=== PATIENT | female | born 1960 | race Caucasian/White ===

== ENCOUNTER → 2016-05-20 | Outpatient (CLI) | payer MEDICARE, MEDICAID ==
[~2016-05-20] MED LIST: REGADENOSON 0.4 MG/5 ML DISP.SYRIN. IV ONE
== END | disposition home or self-care (01) ==
LOC: PCVCIMAG 08:44
PROVIDERS: ATTEND Internal Medicine Cardiovascular Disease
DX: I25.10 Atherosclerotic heart disease of native coronary artery without angina pectoris (principal); E78.00 Pure hypercholesterolemia, unspecified; J44.9 Chronic obstructive pulmonary disease, unspecified; I10 Essential (primary) hypertension; Z72.0 Tobacco use; Z86.79 Personal history of other diseases of the circulatory system
CPT/HCPCS: 78452; 80061; 93005; 93017; A9500; G0463; J2785

== ENCOUNTER → 2018-02-27 | Outpatient (CLI) | payer MEDICARE, MEDICAID | END | disposition home or self-care (01) | LOC: PCVCCLINIC 12:47 | PROVIDERS: ATTEND Internal Medicine Cardiovascular Disease | DX: I25.10 Atherosclerotic heart disease of native coronary artery without angina pectoris (principal); E78.00 Pure hypercholesterolemia, unspecified; J44.9 Chronic obstructive pulmonary disease, unspecified; R09.89 Other specified symptoms and signs involving the circulatory and respiratory systems; I11.0 Hypertensive heart disease with heart failure; I50.9 Heart failure, unspecified; K21.9 Gastro-esophageal reflux disease without esophagitis; F17.210 Nicotine dependence, cigarettes, uncomplicated; Z79.82 Long term (current) use of aspirin | CPT/HCPCS: 36415; 80061; 93005; G0463 ==

== ENCOUNTER → 2018-09-27 | Outpatient (CLI) | payer MEDICARE, MEDICAID ==
--- NOTE | 2018-09-27 17:00 | PCVCIMAG ---
APPROVED REPORT Study performed: 09/27/2018 13:11:41 EXAM: Limited 2D Echocardiogram Patient Location: Echo lab Room #: 3Status: routine BSA: 1.85 HR: 73 bpmBP: 142/85 mmHg Rhythm: NSR Other Information Study Quality: Good Risk Factors: Cardiac Risk Factors: HTN, Hyperlipidemia, Smoking Indications COPD CAD S/P CABG x5 (2013) 2D Dimensions IVSd: 8.63 (7-11mm)LVOT Diam: 18.00 (18-24mm) LVDd: 46.99 mm PWd: 8.68 (7-11mm)Ascending Ao: 27.53 (22-36mm) LVDs: 32.28 (25-40mm) Left Atrium: 34.82 (27-40mm) Aortic Root: 26.03 mm LV Single Plane 4CH: 61.62 % LV Single Plane 2CH: 65.58 % Volumes Left Atrial Volume (Systole) Single Plane 4CH: 25.70 mLSingle Plane 2CH: 29.77 mL LA ESV Index: 15.00 mL/m2 Tricuspid Valve RAP Estimate: 7.00 mmHg Left Ventricle The left ventricle is normal size. There is normal LV segmental wall motion. There is normal left ventricular wall thickness. Left ventricular systolic function is normal. The left ventricular ejection fraction is within the normal range. LVEF is 60-65%. The left ventricular diastolic function is normal. Right Ventricle The right ventricle is normal size. The right ventricular systolic function is normal. Atria The left atrium size is normal. The right atrium size is normal. Aortic Valve The aortic valve is normal in structure. There is no aortic valvular stenosis. Mitral Valve The mitral valve is normal in structure. No evidence of mitral valve stenosis. Tricuspid Valve The tricuspid valve is normal in structure. Pulmonic Valve The pulmonary valve is normal in structure. Great Vessels The aortic root is normal in size. The ascending aorta is normal in size. IVC is normal in size and collapses >50% with inspiration. Pericardium There is no pericardial effusion. <Conclusion> The left ventricle is normal size. LVEF is 60-65%. The left ventricular diastolic function is normal. The right ventricle is normal size. The left atrium size is normal. The aortic valve is normal in structure. The mitral valve is normal in structure. The tricuspid valve is normal in structure. The aortic root is normal in size. There is no pericardial effusion.
== END | disposition home or self-care (01) ==
LOC: PCVCIMAG 12:59
PROVIDERS: ATTEND Internal Medicine Cardiovascular Disease
DX: I25.810 Atherosclerosis of coronary artery bypass graft(s) without angina pectoris (principal); J44.9 Chronic obstructive pulmonary disease, unspecified; E78.00 Pure hypercholesterolemia, unspecified; E78.1 Pure hyperglyceridemia; R00.2 Palpitations; I11.0 Hypertensive heart disease with heart failure; I50.9 Heart failure, unspecified; K21.9 Gastro-esophageal reflux disease without esophagitis; Z88.0 Allergy status to penicillin; Z88.8 Allergy status to other drugs, medicaments and biological substances; Z79.82 Long term (current) use of aspirin; Z95.1 Presence of aortocoronary bypass graft; Z72.0 Tobacco use; Z79.899 Other long term (current) drug therapy
CPT/HCPCS: 36415; 80061; 93005; 93308; G0463

== ENCOUNTER → 2019-02-14 | Outpatient (CLI) | payer MEDICARE, MEDICAID ==
--- NOTE | 2019-02-15 19:54 | PCVCIMAG ---
APPROVED REPORT Study performed: 02/14/2019 12:12:07 EXAM: Comprehensive 2D, Doppler, and color-flow Echocardiogram Patient Location: Echo lab Room #: 3Status: routine BSA: 1.86 HR: 93 bpmBP: 116/80 mmHg Rhythm: NSR Other Information Study Quality: Adequate Risk Factors: Cardiac Risk Factors: Hyperlipidemia, HTN, Smoking Indications COPD Dyspnea CAD Palpitations 2D Dimensions IVSd: 11.23 (7-11mm)LVOT Diam: 19.00 (18-24mm) LVDd: 39.90 mm PWd: 10.55 (7-11mm)Ascending Ao: 27.41 (22-36mm) LVDs: 29.67 (25-40mm) Left Atrium: 35.28 (27-40mm) Aortic Root: 25.24 mm LV Single Plane 4CH: 57.15 % LV Single Plane 2CH: 58.80 % Biplane EF: 58.7 % Volumes Left Atrial Volume (Systole) Single Plane 4CH: 35.08 mLSingle Plane 2CH: 44.95 mL LA ESV Index: 22.00 mL/m2 Aortic Valve AoV Peak Jerardo.: 1.32 m/s AO Peak Gr.: 6.95 mmHgLVOT Max P.59 mmHg LVOT Max V: 0.95 m/s ENMA Vmax: 1.93 cm2 Mitral Valve E/A Ratio: 0.8 MV Decel. Time: 162.79 ms MV E Max Jerardo.: 0.93 m/s MV A Jerardo.: 1.10 m/s IVRT: 55.36 ms TDI E/Lateral E': 11.63E/Medial E': 13.29 Medial E' Jerardo.: 0.07 m/s Lateral E' Jerardo.: 0.08 m/s Pulmonary Valve PV Peak Jerardo.: 1.19 m/sPV Peak Gr.: 5.63 mmHg Pulmonary Vein P Vein S: 0.43 m/sP Vein A: 0.26 m/s P Vein D: 0.37 m/sP Vein A Dur.: 79.6 msec P Vein S/D Ratio: 1.16 Tricuspid Valve RAP Estimate: 7.00 mmHg Left Ventricle The left ventricle is normal size. There is normal LV segmental wall motion. There is normal left ventricular wall thickness. Left ventricular systolic function is normal. The left ventricular ejection fraction is within the normal range. LVEF is 55-60%. Mild diastolic dysfunction is present (impaired relaxation pattern). Right Ventricle The right ventricle is normal size. The right ventricular systolic function is normal. Atria The left atrium size is normal. The right atrium size is normal. Aortic Valve The aortic valve is normal in structure. No aortic regurgitation is present. There is no aortic valvular stenosis. Mitral Valve The mitral valve is normal in structure. There is no mitral valve regurgitation noted. No evidence of mitral valve stenosis. Tricuspid Valve The tricuspid valve is normal in structure. Trace tricuspid regurgitation. Unable to assess PA pressure. Pulmonic Valve The pulmonary valve is normal in structure. There is no pulmonic valvular regurgitation. Great Vessels The aortic root is normal in size. The ascending aorta is normal in size. IVC is normal in size and collapses >50% with inspiration. Pericardium There is no pericardial effusion. <Conclusion> The left ventricle is normal size. LVEF is 55-60%. Mild diastolic dysfunction is present (impaired relaxation pattern). The right ventricle is normal size. The left atrium size is normal. The aortic valve is normal in structure. No aortic regurgitation is present. There is no mitral valve regurgitation noted. Trace tricuspid regurgitation. Unable to assess PA pressure. The aortic root is normal in size. There is no pericardial effusion.
--- NOTE | 2019-02-15 19:55 | PCVCIMAG ---
APPROVED REPORT Imaging Protocol: Rest Tc-99m/Stress Tc-99m 1 day Study performed: 02/14/2019 12:22:53 Indication: CAD, Palpitations, Dizziness Patient Location: Out-Patient Stress Nurse: Jessica Dotson RN, Ashlee Pendleton RN IN Tech:AILIN GalvanMT Ht: 5 ft 1 in Wt: 190 lbs BSA: 1.85 m2 HR: 86 bpm BP: 128/75 mmHg BMI: 35.8 Rhythm: Sinus Rhythm, First Degree AV Block Medical History Medical History: CABG 2013, Age, HLP, HTN, COPD, Smoker Medications: Toprol XL, ASA, Crestor Allergies: Cipro, PCN, Sulfa Resting Data Rest SPECT myocardial perfusion imaging was performed in supine position 45 minutes following the intravenous injection of 10.9 mCi of Tc-99m Sestamibi. Time of rest injection: 1210 Date: 02/14/2019 Administration Route: IV Administration Site: Right AC Pharmacologic Stress Pharmacologic stress test was performed by injecting Regadenoson 0.4 mg IV push over 10-15 seconds immediately followed by the intravenous injection of 31.5 mCi of Tc-99m Sestamibi. Time of stress injection: 1315 Date: 02/14/2019 Administration Route: IV Administration Site: Right AC Gated Stress SPECT was performed 45 minutes after stress injection. The images were gated to evaluate regional wall motion and calculate left ventricular ejection fraction. Stress Test Details Stress Test: Pharmacologic stress testing performed using 0.4 mg of regadenoson per 5 mL given IV over 10 seconds. Reason for pharmacologic stress test: recent pneumonia. HRMax Heart Rate (APMHR): 163 bpm Resting HR: 86 bpmTarget HR (85% APMHR): 138 bpm Max HR Achieved: 104 bpm % of APMHR: 63 Recovery HR: 93 bpm BP Resting BP: 128/75 mmHg Max BP: 126/76 mmHg Recovery BP: 117/71 mmHg ECG Resting ECG: Sinus Rhythm, First Degree AV Block Stress ECG: Sinus Tachycardia, First Degree AV Block Arrhythmia: None Recovery ECG: Sinus Rhythm, First Degree AV Block Clinical Reason for Termination: Completed protocol Stress Symptoms: Dyspnea Symptoms resolved with caffeine. Stress ECG Conclusion ECG: Non-ischemic Study Quality Study: Good Study Data Post stress, the left ventricular ejection was 69%.. SSS: 0 SRS: 0 SDS: 0 TID = 0.95. Perfusion No evidence of stress induced ischemia or prior myocardial infarction. Wall Motion Normal left ventricular size and function with no regional wall motion abnormalities. Nuclear Conclusion No evidence of stress induced ischemia or prior myocardial infarction. Normal left ventricular size and function with no regional wall motion abnormalities. Post stress, the left ventricular ejection was 69%. No prior study available for comparison. Interpreted by: Chang Matos MD Electronically Approved: 02/14/2019 15:10:06 <Conclusion> ECG: Non-ischemic
== END | disposition home or self-care (01) ==
LOC: PCVCIMAG 11:59
PROVIDERS: ATTEND Internal Medicine Cardiovascular Disease
DX: J44.9 Chronic obstructive pulmonary disease, unspecified (principal); R06.00 Dyspnea, unspecified; I25.10 Atherosclerotic heart disease of native coronary artery without angina pectoris; R00.2 Palpitations; R42 Dizziness and giddiness; I10 Essential (primary) hypertension; F17.200 Nicotine dependence, unspecified, uncomplicated; Z88.0 Allergy status to penicillin; Z88.8 Allergy status to other drugs, medicaments and biological substances
CPT/HCPCS: 78452; 93017; 93306; A9500; J2785